=== PATIENT | female | born 1970 | race Caucasian/White ===

== ENCOUNTER → 2017-12-07 | Outpatient (CLI) | payer OTHER ==
[~2017-12-07] MED LIST: ?BP MED; ALPR0.5T72 PO; AMOX-97 PO; AMOX500C2 PO; AMOX500T2 PO; CIPR500T78 PO; CLIN-80 PO; CYCL10TA9 PO; DICY10CA26 PO; DIPH1TAB25; DIPH1TAB25 PO; FLUO20CA42 PO; FRS325T PO; HYDR-34 PO; HYDR-3714 PO; HYDR-3876 PO; HYDR1TAB66 PO; HYDR50CA PO; HYOS0.1217 PO; IBUP800T26 PO; Ibuprofen PO; LISI10TA PO; LISI10TA2 PO; LOPE2CAP PO; LORA10TA76 PO; METO10TA3 PO; METR500T PO; NF-ESOM40C PO; NITR-33 PO; OMEP-10 PO; OMEP20CA6 PO; OMEP40CA36 PO; ONDA-42 SL; OXYC-12 PO; OXYC-471 PO; PANT40TA2 PO; PRD20T PO; PROM25TA14 PO; RABE20TA PO; SCR1T PO; SUCR1ORA5 PO; SUCR1TAB PO; SULF-222 PO; SULF1TAB7 PO; TRAM-21 PO; TRAM50TA2 PO
[2017-12-07 18:48] LABS: BASOPHILS % (AUTO) 0 % (0-10); EOSINOPHILS # (AUTO) 0.1 10^3/uL (0.0-0.3); EOSINOPHILS % (AUTO) 1 % (0-10); HEMATOCRIT 39 % (35-52); HEMOGLOBIN 13.6 G/DL (11.5-16.0); LYMPHOCYTES # (AUTO) 1.5 X 10^3 (1.0-4.0); LYMPHOCYTES % (AUTO) 19 % (12-44); MEAN CORPUSCULAR HEMOGLOBIN 30 PG (25-34); MEAN CORPUSCULAR HGB CONC 35 G/DL (32-36); MEAN CORPUSCULAR VOLUME 86 FL (80-99); MEAN PLATELET VOLUME 10.2 FL (7.4-10.4); MONOCYTES # (AUTO) 0.7 X 10^3 (0.0-1.0); MONOCYTES % (AUTO) 9 % (0-12); NEUTROPHILS # (AUTO) 5.5 X 10^3 (1.8-7.8); NEUTROPHILS % (AUTO) 71 % (42-75); PLATELET COUNT 226 10^3/uL (130-400); RED BLOOD COUNT 4.49 10^6/uL (4.35-5.85); RED CELL DISTRIBUTION WIDTH 12.5 % (10.0-14.5); WHITE BLOOD COUNT 7.7 10^3/uL (4.3-11.0)
[2017-12-07 19:10] LABS: ALANINE AMINOTRANSFERASE 14 U/L (0-55); ALKALINE PHOSPHATASE 92 U/L (40-136); BILIRUBIN,TOTAL 0.6 MG/DL (0.1-1.0); BUN/CREATININE RATIO 15; CALCIUM 9.4 MG/DL (8.5-10.1); CARBON DIOXIDE 24 MMOL/L (21-32); CHLORIDE 103 MMOL/L (98-107); GFR ESTIMATED > 60; GLUCOSE 99 MG/DL (70-105); POTASSIUM 3.6 MMOL/L (3.6-5.0); SODIUM 138 MMOL/L (135-145); TOTAL PROTEIN 7.9 GM/DL (6.4-8.2)
[2017-12-07] MEDS: IOHEXOL 350 MG/ML 100 ML (OMNIPAQUE 350) VIAL IV ONE (19:30)
[2017-12-07] MEDS: NS 100 ML (IVPB) BAG IV ONE (19:33)
--- NOTE | 2017-12-07 19:50 | Diagnostic Imaging Report ---
PROCEDURE: CT abdomen and pelvis with and without contrast. TECHNIQUE: Precontrast acquisitions were acquired through the abdomen and pelvis. Multiple contiguous axial images were obtained through the abdomen and pelvis after the administration of intravenous contrast. INDICATION: Painful urination with gross hematuria COMPARISON: None available. FINDINGS: Lower chest: The lung bases are clear. No pericardial or pleural effusion. Peritoneum: No free intraperitoneal air or fluid. Liver and biliary system: Diffuse hepatic steatosis. No focal hepatic lesion. Status post cholecystectomy without biliary duct dilatation. Spleen and Pancreas: Spleen is normal. The pancreas enhances normally without mass lesion or peripancreatic inflammatory changes. Adrenals: Normal. tract: Noncontrast imaging demonstrates a 3 mm partially obstructing stone in the distal left ureter at the UVJ results in mild left hydroureter. Additionally, there is a 4 mm nonobstructing stone in the mid left kidney. No right renal or ureteral calculi. Postcontrast imaging demonstrates normal enhancement of both kidneys without mass lesion. Ureters have normal excretion. Urinary bladder is decompressed, limiting evaluation. GI tract: Stomach is decompressed. No bowel obstruction. No pericolonic inflammatory changes. Normal appendix. Vasculature and Lymph nodes: Normal caliber aorta. No abdominal or pelvic lymphadenopathy. Musculoskeletal: No concerning osseous lesion. 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 This is unchanged since prior examination of 08/14/2016 IMPRESSION: 1. There is a 3 mm distal left ureteral stone at the UVJ resulting in mild left hydroureter without significant hydronephrosis. 2. Additional nonobstructing 4 mm left renal stone. 3. 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 Dictated by: Dictated on workstation # [id number]
== END ==
LOC: RAD 18:32
PROVIDERS: ATTEND Nurse Practitioner Family
DX: N20.2 Calculus of kidney with calculus of ureter (principal); N13.4 Hydroureter; D17.9 Benign lipomatous neoplasm, unspecified
CPT/HCPCS: 36415; 74178; 80053; 85025

== ENCOUNTER → 2019-08-06 | Outpatient (CLI) | payer OTHER ==
--- NOTE | 2019-08-06 14:23 | Diagnostic Imaging Report ---
INDICATION: Bilateral breast pain. COMPARISON: Correlation is made with prior mammograms from 07/13/2015 and 05/14/2013. TECHNIQUE: 2D and 3D bilateral diagnostic mammography was performed with CAD. FINDINGS: Scattered fibroglandular densities are identified bilaterally. There are numerous circumscribed nodular densities in both breasts with all appearing to be stable when compared to the prior exam. No new mass or malignant appearing microcalcifications are seen. There is a biopsy clip in the central right breast. The axillae are unremarkable. IMPRESSION: Stable bilateral mammograms with no mammographic features suspicious for malignancy identified. Even so, directed sonographic interrogation of the areas of pain in the bilateral breasts is recommended and will be performed today. ACR BI-RADS Category 0: Incomplete. (Needs additional imaging evaluation). Result letter will be mailed to the patient. Note: At least 10% of breast cancer is not imaged by mammography. Dictated by: Dictated on workstation # [id number]
--- NOTE | 2019-08-06 14:40 | Diagnostic Imaging Report ---
Indication: Bilateral breast pain. Correlation is made with a diagnostic mammogram earlier the same day. Sonogram of the areas of pain in bilateral breasts was performed. No sonographic abnormalities are seen. No solid or cystic masses are detected. Impression: BI-RADS category 2 No sonographic abnormality is detected. ACR BI-RADS Category 2: Benign findings. Result letter will be mailed to the patient. Note: At least 10% of breast cancer is not imaged by mammography. Dictated by: Dictated on workstation # [id number]
== END ==
LOC: RAD 12:56
PROVIDERS: ATTEND Nurse Practitioner Family
DX: N64.52 Nipple discharge (principal); N64.4 Mastodynia
CPT/HCPCS: 77066

== ENCOUNTER → 2019-09-08 | Outpatient (CLI) | payer OTHER ==
[~2019-09-08] MED LIST changes: +CATHETER FLUSH 10 ML SYR IV PRN; +HOLD METFORMIN - RECEIVED CONTRAST 20 ML VIAL IV SCH; +IOHEXOL 350 MG/ML 100 ML (OMNIPAQUE 350) VIAL IV ONE; +NS 100 ML (IVPB) BAG IV ONE
--- NOTE | 2019-09-08 14:45 | Diagnostic Imaging Report ---
PROCEDURE: CT abdomen and pelvis with and without contrast. TECHNIQUE: Precontrast acquisitions were acquired through the abdomen and pelvis. Multiple contiguous axial images were obtained through the abdomen and pelvis after the administration of intravenous contrast. Auto Exposure Controls were utilized during the CT exam to meet ALARA standards for radiation dose reduction. INDICATION: Microhematuria and lower abdominal pain. COMPARISON: Correlation is made with prior CT from 12/07/2017. FINDINGS: Lung bases are clear. No discrete liver mass is identified. The gallbladder is surgically absent. No biliary ductal dilatation is seen. The pancreas and spleen are unremarkable. No adrenal mass is detected. Right kidney is unremarkable. Left kidney does contain a 6 mm nonobstructing calculus in the mid region. There are multiple renal sinus cysts involving the left kidney as well. No hydronephrosis is identified. No ureteral calculi are seen. Aorta is nonaneurysmal. No central retroperitoneal or mesenteric lymphadenopathy is seen. The small and large bowel loops are normal in caliber. Bladder is unremarkable. The large fatty tumor identified on prior exam in the region of the left gluteus musculature and extending through the sciatic notch appears to be larger on today's study. The intrapelvic component measures approximately 9.9 cm x 7.0 cm compared with 8.8 cm x 5.1 cm. The gluteal component measures 15 cm x 5.9 cm compared with 13.8 cm x 5.8 cm. No free fluid or loculated fluid collection is seen. IMPRESSION: 1. 6 mm nonobstructing left renal calculus. No ureteral calculi or hydronephrosis is seen. 2. Left renal sinus cysts. 3. There has been some increase in size of the fatty tumor involving the left gluteus region extending through the sciatic notch into the left hemipelvis when compared with prior study from 12/07/2017. Dictated by: Dictated on workstation # [id number]
== END ==
LOC: RAD 12:32
PROVIDERS: ATTEND Nurse Practitioner Family
DX: N20.0 Calculus of kidney (principal); N28.1 Cyst of kidney, acquired; D49.89 Neoplasm of unspecified behavior of other specified sites; Z90.49 Acquired absence of other specified parts of digestive tract
CPT/HCPCS: 74178

== ENCOUNTER → 2021-08-31 | Outpatient (CLI) | payer BC, OTHER ==
[~2021-08-31] MED LIST changes: -CATHETER FLUSH 10 ML SYR IV PRN; -HOLD METFORMIN - RECEIVED CONTRAST 20 ML VIAL IV SCH; -IOHEXOL 350 MG/ML 100 ML (OMNIPAQUE 350) VIAL IV ONE; +LISI10TA25 PO; -NS 100 ML (IVPB) BAG IV ONE; -OXYC-471 PO; +OXYC1TAB11 PO
--- NOTE | 2021-08-31 10:36 | Diagnostic Imaging Report ---
PROCEDURE: US Non-OB pelvis comp/trans. TECHNIQUE: Multiple real-time grayscale images were obtained of the pelvis in various projections transabdominally and endovaginally. INDICATION: Left-sided pelvic pain x6 years, increasing in severity. CORRELATION STUDY: 05/14/2014. CT abdomen and pelvis 09/08/2019. FINDINGS: Uterus is surgically absent. The ovaries are not visualized, and this may reflect prior oophorectomy as well. In the left adnexa is a heterogeneous solid mass. This measures approximately 11.1 x 6.8 x 7.5 cm. No abnormal pelvic fluid. IMPRESSION: 1. Large, at least 11 cm mass in the left adnexa. In correlation with CT imaging, it likely reflects the previously identified large fatty tumor which is within the left posterior hemipelvis and extends through the sciatic notch into the left gluteal region. If further assessment is desired, repeat CT imaging of the abdomen and pelvis would be recommended, preferably with contrast. Dictated by: Dictated on workstation # [id number]
== END ==
LOC: RAD 09:00
PROVIDERS: ATTEND Nurse Practitioner Family
DX: N39.0 Urinary tract infection, site not specified (principal); R10.2 Pelvic and perineal pain; R12 Heartburn; R19.09 Other intra-abdominal and pelvic swelling, mass and lump
CPT/HCPCS: 76830; 76856

== ENCOUNTER → 2021-09-06 | Outpatient (CLI) | payer BC ==
[~2021-09-06] MED LIST changes: +HOLD METFORMIN - RECEIVED CONTRAST 20 ML VIAL IV SCH; +IOHEXOL 350 MG/ML 100 ML (OMNIPAQUE 350) VIAL IV ONE; +NS 100 ML (IVPB) BAG IV ONE
--- NOTE | 2021-09-06 18:55 | Diagnostic Imaging Report ---
Procedure: CT abdomen and pelvis with and without contrast. Technique: Precontrast acquisitions were acquired through the abdomen and pelvis. Multiple contiguous axial images were obtained through the abdomen and pelvis after the administration of intravenous contrast. Auto Exposure Controls were utilized during the CT exam to meet ALARA standards for radiation dose reduction. DATE: September 06, 2021. COMPARISON: CT abdomen pelvis September 08, 2019. INDICATION: 51-year-old female, intra-abdominal and pelvic swelling. FINDINGS: The visualized portions of the lung bases are clear. The heart is not enlarged. There is no pericardial effusion. There is diffuse fatty infiltration of the liver. The liver is normal in size and contour. There is a 4 mm low-attenuation lesion in the left lobe of the liver on axial image 27 too small to characterize. The main, right, and left portal veins are patent. The patient is status post cholecystectomy. There is no intrahepatic or extrahepatic bile duct dilation. The main pancreatic duct is not abnormally dilated. Unremarkable appearance of the pancreatic parenchyma. The spleen is normal in size. The adrenal glands are unremarkable. There is a 6 mm nonobstructing left renal stone on axial image 37. There is no hydronephrosis. The urinary bladder is underdistended and not well evaluated. There are left-sided parapelvic cysts. The intestinal tract is not distended. The appendix is unremarkable. There is no free intraperitoneal air. There is no drainable fluid collection. There is no free pelvic fluid. There is a large fat-containing mass centered in the region of the left pelvis extending in the region of the left gluteal musculature in posterior thigh compartment on the left measuring 16.1 x 12.0 cm in axial extent and 26 cm in craniocaudal extent. There is very mild internal strandiness within the fat-containing mass. There is no identified solid internal mural nodule. There is mass effect on pelvic structures which are displaced to the right. There is no abnormally enlarged lymph node in the abdomen or pelvis meeting CT size criteria for adenopathy. There is no identified acute bony abnormality. IMPRESSION: CT ABDOMEN AND PELVIS. 1. Large fat-containing mass centered in the left pelvis extending into the left gluteal musculature and posterior thigh compartment measuring 16.1 x 12.0 x 26 cm in size. There is very low level internal strandiness within the mass and no solid internal mural nodule. The mass previously measured roughly 16.3 x 11.0 cm in craniocaudal extent and at least 17 cm in craniocaudal extent previously. The inferior extent of the mass is incompletely imaged on the prior exam. Although this may reflect a large lipoma, especially given size of the mass and low level internal strandiness, atypical lipomatous tumor or low-grade liposarcoma is in the differential diagnosis. 2. No additional lesion concerning for metastatic disease or primary malignancy in the abdomen or pelvis. 3. Diffuse fatty infiltration of the liver. 4. Left parapelvic cysts. Dictated by: Dictated on workstation # [id number]
== END ==
LOC: RAD 17:34
PROVIDERS: ATTEND Nurse Practitioner Family
DX: K76.0 Fatty (change of) liver, not elsewhere classified (principal); N83.202 Unspecified ovarian cyst, left side
CPT/HCPCS: 74178